=== PATIENT | male | born 1965 | race Caucasian/White ===

== ENCOUNTER 2019-11-30 19:36 | Inpatient (IN) | payer BC ==
[~2019-11-30] VITALS: Ht 175.3 cm; Wt 99.2 kg
[2019-11-30 21:21] LABS: BASOPHILS ABSOLUTE AUTO 0.08 K/mm3 (0.00-0.23); BASOPHILS PERCENT AUTO 1 % (0-2); EOSINOPHILS PERCENT AUTO 2 % (0-6); Hemoglobin 16.3 g/dL (13.5-17.5); IMMATURE GRAN ABSOLUTE AUTO 0.07 K/mm3 (0.00-0.10); IMMATURE GRAN PERCENT AUTO 1 % (0-1); LYMPHOCYTES ABSOLUTE AUTO 2.19 K/mm3 (0.84-5.20); LYMPHOCYTES PERCENT AUTO 23 % (21-46); MONOCYTES ABSOLUTE AUTO 0.86 K/mm3 (0.16-1.47); MONOCYTES PERCENT AUTO 9 % (4-13); Mean Corpuscular HGB 29.4 pg (26.0-34.0); Mean Corpuscular Volume 87 fL (80-100); Mean Platelet Volume 9.7 fL (9.1-12.4); NEUTROPHILS ABSOLUTE AUTO 6.24 K/mm3 (1.96-9.15); NEUTROPHILS PERCENT AUTO 65 % (41-73); Platelet Count 222 K/mm3 (150-400); RDW Coefficient Variation 12.5 % (11.7-14.2); RDW Standard Deviation 39.7 fL (35.1-46.3); Red Blood Cell Count 5.54 M/mm3 (4.30-5.90); White Blood Cell Count 9.64 K/mm3 (4.00-11.30)
[2019-11-30 21:25] LABS: Calcium, Ionized (POC) 1.23 mmol/L (1.10-1.46); Chloride (POC) 101 mmol/L (98-108); Creatinine (POC) 1.1 mg/dL (0.8-1.3); Glucose (ISTAT POC) 92 mg/dL (70-99); Hemoglobin (POC) 16.3 g/dL (13.5-17.5); Potassium (POC) 4.3 mmol/L (3.5-5.5); Sodium (POC) 137 mmol/L (135-148); Total CO2 (POC) 27 mmol/L (21-32)
--- NOTE | 2019-12-01 03:59 | NUR ---
SHIFT SUMMARY PT ADMITTED TO MEDICAL FLOOR AT 0145 THIS AM FROM ED. PT PLEASANT, COOPERATIVE, MAKES NEEDS KNOWN APPROPRIATELY. ORIENTED TO ROOM/UNIT, PT INDICATED UNDERSTANDING. BROUGHT PT A SNACK, MADE COMFORTABLE. ASLEEP AT THIS TIME, NO ACUTE EVENTS NOTED. CALL LIGHT, POSSESSIONS IN REACH, REMINDED PT TO CALL FOR NEEDS. WILL CONTINUE TO MONITOR UNTIL DAY RN ASSUMES CARE.
[2019-12-01 05:22] LABS: BASOPHILS ABSOLUTE AUTO 0.04 K/mm3 (0.00-0.23); BASOPHILS PERCENT AUTO 0 % (0-2); EOSINOPHILS ABSOLUTE AUTO 0.03 K/mm3 (0.00-0.68); EOSINOPHILS PERCENT AUTO 0 % (0-6); Hematocrit 47.7 % (37.0-53.0); Hemoglobin 16.2 g/dL (13.5-17.5); IMMATURE GRAN ABSOLUTE AUTO 0.07 K/mm3 (0.00-0.10); IMMATURE GRAN PERCENT AUTO 1 % (0-1); LYMPHOCYTES ABSOLUTE AUTO 1.04 K/mm3 (0.84-5.20); LYMPHOCYTES PERCENT AUTO 9 % (21-46); MONOCYTES ABSOLUTE AUTO 0.23 K/mm3 (0.16-1.47); MONOCYTES PERCENT AUTO 2 % (4-13); Mean Corpuscular HGB 29.7 pg (26.0-34.0); Mean Corpuscular Volume 88 fL (80-100); Mean Platelet Volume 9.9 fL (9.1-12.4); NEUTROPHILS ABSOLUTE AUTO 10.13 K/mm3 (1.96-9.15); NEUTROPHILS PERCENT AUTO 88 % (41-73); Platelet Count 216 K/mm3 (150-400); RDW Coefficient Variation 12.8 % (11.7-14.2); RDW Standard Deviation 40.7 fL (35.1-46.3); Red Blood Cell Count 5.45 M/mm3 (4.30-5.90); White Blood Cell Count 11.54 K/mm3 (4.00-11.30)
[2019-12-01 05:46] LABS: Alanine Aminotransfer (ALT/SGP 39 U/L (12-78); Albumin, Blood 4.1 g/dL (3.4-5.0); Albumin/Globulin Ratio 1.1 (0.8-1.8); Alk Phos 78 U/L (50-136); Anion Gap 5 mmol/L (6-16); Aspartate Aminotrans (AST/SGOT 23 U/L (12-37); Bilirubin, Total 0.4 mg/dL (0.1-1.0); Blood Urea Nitrogen 14 mg/dL (8-24); Bun/Creatinine Ratio 13.5 (12.0-20.0); CO2, Blood 29 mmol/L (21-32); Chloride, Blood 105 mmol/L (98-108); Creatinine, Blood 1.04 mg/dL (0.60-1.20); Globulin, Blood 3.7 g/dL (2.2-4.0); Glomerular Filtration Rate >60 (60-); Glucose, Blood 132 mg/dL (70-99); Potassium, Blood 4.2 mmol/L (3.5-5.5); Sodium, Blood 139 mmol/L (136-145); Total Protein, Blood 7.8 g/dL (6.4-8.2)
[2019-12-01] MEDS ORDERED: ACET325 PO (12:32)
[2019-12-01] MEDS ORDERED: ATOR20 PO (12:32)
[2019-12-01] MEDS ORDERED: Percocet 5-3251 EACH PO (12:33)
[2019-12-01] MEDS ORDERED: ONDA4ODT MM (12:34)
--- NOTE | 2019-12-01 14:08 | NUR ---
1315 PT DISHCARGED HOME VIA PERSONAL VEHICLE, PT HAS APPOINTMENT WITH DR. ROSAS AT 1330. PT ESCORTED TO ENTRANCE VIA W/C. IV LEFT INSERTED PT HAS STEFFI APPOINTMENT TOMORROW AT 1500. D/C INSTRUCTIONS REVIEWED WITH PT AND COPY PROVIDED. PT REPORTED THAT HIS SWELLING REDNESS AND VISION HAVE IMPROVED SINCE ADMISSION. IV SOLUMEDROL GIVEN PRIOR TO D/C. MRI COMPLETED WELL. NO NEW CHANGES OR CONCERNS.
[2019-12-02] MEDS ORDERED: Prednisone10 MG PO (15:14)
== END 2019-12-01 13:15 | disposition home or self-care (01) | DRG 123 ==
LOC: ER 19:36 → MEDS 12-01 01:31
PROVIDERS: Emergency Medicine; Nurse Practitioner Acute Care; ADMIT Internal Medicine
DX: H46.9 Unspecified optic neuritis (principal); E78.5 Hyperlipidemia, unspecified; J32.9 Chronic sinusitis, unspecified
CPT/HCPCS: 36415; 70470; 70543; 80047; 80053; 85014; 85025; 85651; 86140; 96365; 96375; 99285-25; A9577; J0696; J1170; J1200; J2765; J2930; J3010; J7030; Q9967

== ENCOUNTER 2019-12-02 00:20 | Day surgery (SDC) | payer BC ==
[~2019-12-02 00:20] MED LIST: ACET325 PO; ATOR20 PO; ONDA4ODT MM; Percocet 5-3251 EACH PO
[2019-12-02] MEDS ORDERED: Prednisone10 MG PO (15:14)
--- NOTE | 2019-12-02 15:36 | NUR ---
PT CAME IN WITH A 20G IV, FLUSHES WELL, PT DENIES ANY DISCOMFORT.
== END 2019-12-02 16:00 | disposition home or self-care (01) ==
LOC: ATC 00:20
DX: H46.8 Other optic neuritis (principal)
CPT/HCPCS: 96365; J2930

== ENCOUNTER 2019-12-03 02:03 | Day surgery (SDC) | payer BC ==
[~2019-12-03 02:03] MED LIST changes: +Prednisone10 MG PO
== END 2019-12-03 15:56 | disposition home or self-care (01) ==
LOC: ATC 02:03
DX: H46.8 Other optic neuritis (principal)
CPT/HCPCS: 96365; J2930